=== PATIENT | male | born 1935 | race Caucasian/White ===

== ENCOUNTER 2019-04-03 07:38 | Day surgery (SDC) | payer OTHER, BC ==
[2019-03-28 12:36] VITALS: BMI 32.5
[2019-04-03] MEDS ORDERED: ONDANSETRON 4 MG/2 ML VIAL IVPUSH PRN (08:54)
[2019-04-03] MEDS ORDERED: oxyCODONE HCL 5 MG TABLET PO PRN (08:54)
[2019-04-03] MEDS ORDERED: LACTATED RINGERS SOLUTION 1,000 ML IV SCH (09:00)
[2019-04-03] MEDS ORDERED: MIDAZOLAM HCL 2 MG/2 ML SINGLE DOSE VIAL ONE (09:08)
[2019-04-03] MEDS ORDERED: PROPOFOL 20 ML ONE ×2 (09:08)
[2019-04-03] MEDS ORDERED: ERYTHROMYCIN 0.5% OPHTHALMIC OINTMENT 3.5 GM TUBE ONE (09:13)
[2019-04-03] MEDS ORDERED: TETRACAINE 0.5% OPHTH SOLN 2 ML BOTTLE ONE (09:13)
[2019-04-03] MEDS ORDERED: POVIDONE-IODINE 5% OPHTHALMIC PREP 30 ML SOLUTION ONE (09:14)
[2019-04-03] MEDS ORDERED: BUPIVACAINE HCL/PF 0.5% (5MG/ML) 10 ML VIAL ONE (09:14)
[2019-04-03] MEDS ORDERED: LIDOCAINE 1%/EPI 1:100000 (20 ML MULTI DOSE VIAL) ONE (09:14)
[2019-04-03] MEDS ORDERED: ceFAZolin SODIUM 1 GM VIAL ONE (10:10)
[2019-04-03] MEDS ORDERED: ePHEDrine SULFATE 50 MG/1 ML AMPULE ONE (10:36)
--- NOTE | 2019-04-03 12:22 | OP ---
DATE OF OPERATION: 04/03/2019 PREOPERATIVE DIAGNOSIS: Recurrent involutional entropion, right lower lid. POSTOPERATIVE DIAGNOSIS: Recurrent involutional entropion, right lower lid. PROCEDURE: 1. Lateral tarsal strip, right lower lid. 2. Transconjunctival plication of retractors, right lower lid. 3. Partial thickness orbicularis excision at the inferior tarsus. 4. Quickert everting sutures, right lower lid. SURGEON: Eliecer Rico MD ANESTHESIA: Local with sedation. COMPLICATIONS: None. ESTIMATED BLOOD LOSS: 2-3 mL OPERATIVE REPORT: Patient was brought to the operating room, placed on the operating room table. Vital signs were monitored by Anesthesia. Tetracaine was placed in both eyes. Time-out was performed. A line was marked through the right lateral canthus. After intravenous sedation, patient was given a 50/50 mixture of 2% Xylocaine, 1:100,000 epinephrine, 0.5% Marcaine lateral canthus, down to periosteum, lateral third in the upper and lower lid, and transsubconjunctivally in the inferior tarsus for a total of 1.5 mL. Massage was applied for hemostasis. Patient was prepped and draped in the usual sterile fashion exposing both eyes. Lateral canthal incision was made to the right lateral canthus, carried down to periosteum opening the lateral canthus. The inferior tanika of the lateral canthal tendon was released from the orbital rim with the Gonzales needle. The old Prolene from prior surgery was removed. The lid was overlapped gently at the orbital rim, divided to an anterior and posterior lamella, denuded in the tarsus anteriorly. Anterior lamella was excised. Posterior lamella was denuded posteriorly and superiorly and retractors released and the tarsal strip was then secured with a double-arm 5-0 Prolene reinforced with two 6-0 Vicryl lasso sutures. These were placed through the internal surface of the orbital rim, through the periosteum, and brought out. They were not tied at this point. A 4-0 silk traction suture was passed through the central lobe and margin of the lid was everted with Desmarres retractor. Transsubconjunctival incision was made just at the inferior border of the tarsus, and conjunctival retractor was diffusely from the postorbicularis surface. Tarsus was then dissected away from the pretarsal orbicularis using a Gonzales needle. There remained a good, thick orbicularis inferiorly; therefore, a partial thickness orbicularis excision was carried out at the inferior tarsal border and then cautery was placed in this position. The retractors were then meticulously plicated to the anterior inferior tarsus using 4 interrupted 6-0 Vicryl sutures with buried knots. This closed the retractors in the conjunctiva. Three double-arm 4-0 chromic sutures were used to pass from the inferior fornix nasally, centrally, and temporally and then exiting through just below the lash line in Quickert everting suture fashion. A 5-0 chromic was passed through the greater line of the upper and lower lid and tied with a buried knot, and the Prolene was now tied with appropriate tension on the lower lid. The excess tarsal strip was overlapped with 0 Prolene, tied with a 5-0 chromic. The muscle was closed with 5-0 chromic suture and the skin with interrupted 6-0 plain suture with plastic technique after antibiotic irrigation. Each of the chromic sutures that were passed in a mattress fashion were now tied individually causing gentle lid eversion with to the middle anterior surface of the eyelid margin at this point close to the anterior margin. This completed the surgery. Erythromycin ointment was placed in the eye and on the sutures of the lateral canthus and the fornix and on all the sutures that were passed full thickness in Quickert everting fashion. The patient was taken to recovery room in stable condition. ELIECER RICO M.D. [id number]
[2019-04-03 12:43] VITALS: TEMP 97.6
[2019-04-03 13:09] VITALS: BP 130/76; PULSE 76
--- NOTE | 2019-04-04 17:08 | PATH ---
Surgical Pathology Report Patient Name: NATALIE NARAYANAN [facility]. Rec. #: [id number] /Age/Gender: 1935 (Age: 83) / M Account: [id number] Location: [facility] Taken: 04/03/2019 Received: 04/03/2019 Reported: 04/04/2019 Physicians: Cole Cosme Specimen(s) Received CYST RIGHT LOWER EYELID Clinical History Entropion lower eyelid Final Diagnosis LOWER EYELID, CYST, RIGHT, EXCISION: SCANT AGGREGATES OF BENIGN FLATTENED EPITHELIAL CELLS, COMPATIBLE WITH CYST LINING EPITHELIUM. Comment: No significant cytologic atypia identified. Deeper levels have been examined. Suggest clinical correlation. Electronically Signed Vanessa Pugh M.D. Gross Description Received in formalin, labeled "cyst, right lower eyelid." is a fragment of lemus-white tissue measuring 0.1 cm in greatest dimension. Entirely submitted in one cassette. AE/04/03/2019 ebram/04/03/2019
== END 2019-04-03 13:00 | disposition home or self-care (01) ==
LOC: FASU 07:38
PROVIDERS: ATTEND Ophthalmology
PROC: 08QQXZZ Repair Right Lower Eyelid, External Approach (ICD-10-PCS; 2019-04-03)
PROC: 08QNXZZ Repair Right Upper Eyelid, External Approach (ICD-10-PCS; 2019-04-03)
PROC: 08SQ0ZZ Reposition Right Lower Eyelid, Open Approach (ICD-10-PCS; principal; 2019-04-03 09:46)
DX: H02.032 Senile entropion of right lower eyelid (principal)
CPT/HCPCS: 88304-TC; 94760